=== PATIENT | female | born 1990 | race Native Hawaiian/Other Pacific Islander ===

== ENCOUNTER 2021-08-08 23:38 | Emergency (ER) | payer OTHER ==
[~2021-08-08] VITALS: Ht 175.3 cm; Wt 95.3 kg
[2021-08-09 00:45] VITALS: BP 145/77; TEMP 97.8
== END 2021-08-09 00:50 | disposition home or self-care (01) ==
LOC: ED 23:38
PROC: 08D Eye, Extraction (ICD-10-PCS; principal; 2021-08-08)
DX: T15.02XA Foreign body in cornea, left eye, initial encounter (principal); X58.XXXA Exposure to other specified factors, initial encounter; Y92.89 Other specified places as the place of occurrence of the external cause
CPT/HCPCS: 99283

== ENCOUNTER 2022-02-19 07:51 | Emergency (ER) | payer OTHER ==
[~2022-02-19] VITALS: Ht 175.3 cm; Wt 102.1 kg
[2022-02-19 07:57] VITALS: TEMP 98
[2022-02-19 08:56] LABS: PLATELET COUNT 256 K/uL (152-353)
[2022-02-19 08:58] LABS: POTASSIUM 3.7 mmol/L (3.6-5.2); SODIUM 141 mmol/L (136-145)
[2022-02-19 09:05] LABS: PARTIAL THROMBOPLASTIN TIME 23.6 SECONDS (24.5-33.6)
[2022-02-19 09:51] VITALS: BP 114/72
== END 2022-02-19 10:00 | disposition home or self-care (01) ==
LOC: ED 07:51
PROVIDERS: Family Medicine
DX: R42 Dizziness and giddiness (principal); F41.8 Other specified anxiety disorders; R73.9 Hyperglycemia, unspecified
CPT/HCPCS: 80053; 82550; 84484; 85027; 85379; 85610; 85730; 93005; 96360; 96374; 99284; J2405

== ENCOUNTER 2023-02-18 03:02 | Emergency (ER) | payer OTHER ==
[~2023-02-18] VITALS: Ht 175.3 cm; Wt 81.6 kg
[2023-02-18 03:40] LABS: PLATELET COUNT 295 K/uL (152-353)
[2023-02-18 03:43] LABS: POTASSIUM 3.9 mmol/L (3.6-5.2)
[2023-02-18 05:35] VITALS: BP 130/80; TEMP 98.1
== END 2023-02-18 05:35 | disposition home or self-care (01) ==
LOC: ED 03:02
PROVIDERS: Family Medicine
DX: R11.2 Nausea with vomiting, unspecified (principal); R51.9 Headache, unspecified
CPT/HCPCS: 36415; 80053; 85027; 96361; 96374; 96375; 99284; J1885; J2550